=== PATIENT | female | born 1960 ===

== ENCOUNTER 2017-07-13 14:57 | Inpatient (IN) | payer MEDICARE, MEDICAID ==
--- NOTE | 2017-07-13 15:21 | ED PDOC ---
HPI: Altered Mental Status Time Seen by Provider: 07/13/17 15:08 Chief Complaint (Nursing): Altered Mental Status Chief Complaint (Provider): Altered Mental Status History Per: Patient History/Exam Limitations: None Onset/Duration Of Symptoms: Days (x2) Additional Complaint(s): Brandy Miller is a 56 year old female with previous medical history of schizoaffective disorder and hypertension, was brought to the emergency department by her family for an evaluation after patient tripped and fell yesterday sustaining injury to her chin, right shoulder and right hand. Denied dizziness or loss of consciousness. Patient was also reported missing by family yesterday from [facility] program and found wandering the streets around [place]. PMD: Edgar Nelson MD Past Medical History Reviewed: Historical Data, Nursing Documentation, Vital Signs Vital Signs: Last Vital Signs Temp 98.4 F 07/13/17 15:01 Pulse 99 H 07/13/17 15:01 Resp 16 07/13/17 15:01 BP 178/73 H 07/13/17 15:01 Pulse Ox 97 07/13/17 15:01 - Medical History PMH: Anxiety, Depression, HTN, Hypercholesterolemia, Schizophrenia ( schizoaffective) Denies: Diabetes, Hepatitis, HIV, Chronic Kidney Disease, Seizures, Sexually Transmitted Disease - Surgical History Surgical History: (x2) - Family History Family History: States: Unknown Family Hx - Home Medications Home Medications: Ambulatory Orders Medication Instructions Recorded Atorvastatin [Lipitor] 40 mg PO HS 10/15/16 Benztropine [Cogentin] 1 mg PO Q12H 10/15/16 Divalproex [Depakote ER] 1,000 mg PO HS 10/15/16 Haloperidol [Haldol] 2 mg PO HS 10/15/16 Lisinopril/Hydrochlorothiazide 1 tab PO DAILY 10/15/16 [Zestoretic 10-12.5 mg Tablet] Risperidone [Risperdal] 2 mg PO Q12H 10/15/16 Sertraline [Zoloft] 50 mg PO QAM 10/15/16 Sertraline [Zoloft] 100 mg PO QAM 10/15/16 buPROPion XL [Wellbutrin XL] 300 mg PO QAM 10/15/16 - Allergies Allergies/Adverse Reactions: Allergies Allergy/AdvReac Type Severity Reaction Status Date / Time No Known Allergies Allergy Verified 10/15/16 15:51 Review of Systems ROS Statement: Except As Marked, All Systems Reviewed And Found Negative ENT: Positive for: Other (chin pain) Musculoskeletal: Positive for: Shoulder Pain (right), Hand Pain (right) Neurological: Negative for: Dizziness, Other (loss of conciousness) Physical Exam - Reviewed Nursing Documentation Reviewed: Yes Vital Signs Reviewed: Yes - Physical Exam Appears: Positive for: Well, Non-toxic, No Acute Distress Head Exam: Negative for: ATRAUMATIC (or tenderness) Skin: Positive for: Normal Color (with submental ecchymosis) Eye Exam: Positive for: Normal appearance, EOMI, PERRL. Negative for: Nystagmus ENT: Positive for: Normal ENT Inspection Neck: Positive for: Normal, Painless ROM, Supple. Negative for: Decreased ROM ( or tenderness/deformity) Cardiovascular/Chest: Positive for: Regular Rate, Rhythm, Chest Non Tender. Negative for: Murmur Respiratory: Positive for: Normal Breath Sounds, Accessory Muscle Use. Negative for: Decreased Breath Sounds, Respiratory Distress Gastrointestinal/Abdominal: Positive for: Normal Exam. Negative for: Tenderness Extremity: Positive for: Tenderness (right shoulder), Other (rigth hand abrasion , cross MCP joints with full ROM). Negative for: Normal ROM (limited with pain) , Deformity Neurologic/Psych: Positive for: Alert (x3), manufacturing specialist II-XII (intact), Oriented ( responding to questions appropriately). Negative for: Motor/Sensory Deficits ( or focal deficits) - Laboratory Results Result Diagrams: 07/13/17 16:30 07/13/17 16:30 - ECG O2 Sat by Pulse Oximetry: 97 (RA) Pulse Ox Interpretation: Normal Medical Decision Making Medical Decision Making: Initial Impression: Fall-type injuries Initial Plan: * CT head without contrast * EKG * Alcohol serum * CMP * Drug screen, urine * Urine dipstick * CBC * CXR * Xray hand (right) * Xray shoulder (right) Medically stable for psychiatric admission Time: 1613 --CT head FINDINGS: HEMORRHAGE: No intracranial hemorrhage. BRAIN: There are mild chronic microangiopathic changes. There is no mass, mass effect or abnormal extra-axial fluid collection. There is no territorial infarction. VENTRICLES: There is mild age-related global parenchymal volume loss and proportionate enlargement of the ventricles and cortical sulci. CALVARIUM: The skull base and calvarium are normal. PARANASAL SINUSES: Predominantly clear. MASTOID AIR CELLS: Predominantly clear. OTHER FINDINGS: None. IMPRESSION: No acute intracranial abnormality. Scribe Attestation: Documented by Soraida Dodd, acting as a scribe for Efren Lucas MD. Provider Scribe Attestation: All medical record entries made by the Scribe were at my direction and personally dictated by me. I have reviewed the chart and agree that the record accurately reflects my personal performance of the history, physical exam, medical decision making, and the department course for this patient. I have also personally directed, reviewed, and agree with the discharge instructions and disposition. Disposition - Clinical Impression Clinical Impression: Schizoaffective disorder - Patient ED Disposition Is Patient to be Admitted: Yes - Disposition Disposition Time: 17:21 Condition: FAIR Forms: [employer] (Georgian) - Pt Status Changed To: Hospital Disposition Of: Inpatient - Admit Certification Admit to Inpatient:: After my assessment, the patient will require hospitalization for at least two midnights. This is because of the severity of symptoms shown, intensity of services needed, and/or the medical risk in this patient being treated as an outpatient. - POA Present On Arrival: None
--- NOTE | 2017-07-13 16:16 | CT ---
PROCEDURE: CT HEAD WITHOUT CONTRAST. HISTORY: r/o bleed COMPARISON: 10/15/2016. TECHNIQUE: Axial computed tomography images were obtained through the head/brain without intravenous contrast. Radiation dose: Total exam DLP = 860.99 mGy-cm. This CT exam was performed using one or more of the following dose reduction techniques: Automated exposure control, adjustment of the mA and/or kV according to patient size, and/or use of iterative reconstruction technique. FINDINGS: HEMORRHAGE: No intracranial hemorrhage. BRAIN: There are mild chronic microangiopathic changes. There is no mass, mass effect or abnormal extra-axial fluid collection. There is no territorial infarction. VENTRICLES: There is mild age-related global parenchymal volume loss and proportionate enlargement of the ventricles and cortical sulci. CALVARIUM: The skull base and calvarium are normal. PARANASAL SINUSES: Predominantly clear. MASTOID AIR CELLS: Predominantly clear. OTHER FINDINGS: None. IMPRESSION: No acute intracranial abnormality.
[2017-07-13 16:41] LABS: BASO # 0.1 K/uL (0.0-0.2); BASO % 0.7 % (0.0-2.0); EOS # 0.1 K/uL (0.0-0.7); HEMATOCRIT 37.7 % (34.0-47.0); LYMPH # 1.5 K/uL (1.0-4.3); LYMPH % 20.8 % (20.0-40.0); MEAN CORPUSCULAR HEMOGLOBIN 28.5 pg (27.0-31.0); MONO # 0.8 K/uL (0.0-0.8); MONO % 10.5 % (0.0-10.0); NEUT # 4.9 K/uL (1.8-7.0); NRBC % 0.1 % (0.0-0.0); RED CELL DISTRIBUTION WIDTH 14.2 % (11.5-14.5); WHITE BLOOD COUNT 7.4 K/uL (4.8-10.8)
[2017-07-13 16:47] LABS: ALB/GLOB RATIO 1.4 (1.0-2.1); ALCOHOL SERUM < 10 mg/dl (0-10); ALKALINE PHOSPHATASE 136 U/L (38-126); ALT/SGPT 27 U/L (9-52); AST/SGOT 40 U/L (14-36); BILIRUBIN,TOTAL 0.2 mg/dl (0.2-1.3); BLOOD UREA NITROGEN 14 mg/dl (7-17); CALCIUM 9.5 mg/dL (8.4-10.2); CARBON DIOXIDE 27 mmol/L (22-30); CHLORIDE 104 mmol/L (98-107); GFR AFRICAN-AMERICAN > 60; GLUCOSE,RANDOM 67 mg/dL (65-105); SODIUM 140 mmol/l (132-148); TOTAL PROTEIN 6.7 G/DL (6.3-8.2)
--- NOTE | 2017-07-13 17:05 | RAD ---
PROCEDURE: CHEST RADIOGRAPH, 1 VIEW HISTORY: cough COMPARISON: 07/13/2016 FINDINGS: LUNGS: Clear. PLEURA: No pneumothorax or pleural fluid seen. CARDIOVASCULAR: No radiographic findings to suggest acute or significant cardiovascular disease. OSSEOUS STRUCTURES: No significant abnormalities. VISUALIZED UPPER ABDOMEN: Normal. OTHER FINDINGS: None. IMPRESSION: No active disease. No acute/significant interval changes.
--- NOTE | 2017-07-13 17:05 | RAD ---
PROCEDURE: Radiographs of the Right Shoulder HISTORY: trauma COMPARISON: 10/15/2016 FINDINGS: BONES: No acute fractures. JOINTS: High riding humeral head relative to the glenoid consistent with rotator cuff disease. Acromioclavicular degenerative changes are stable. SOFT TISSUES: Normal. OTHER FINDINGS: None. IMPRESSION: No acute findings related to/accounting for the clinical presentation. No significant interval change compared to the prior examination(s).
--- NOTE | 2017-07-13 17:06 | RAD ---
PROCEDURE: Right Hand Radiographs. HISTORY: trauma COMPARISON: None. FINDINGS: BONES: No acute fractures. JOINTS: Osteoarthritic changes primarily distal interphalangeal joint distribution. SOFT TISSUES: Normal. OTHER FINDINGS: None. IMPRESSION: No acute findings related to/accounting for the clinical presentation.
[2017-07-13] MEDS ORDERED: DiphenhydrAMINE 50 mg/ml Inj IM PRN (20:00)
[2017-07-13] MEDS ORDERED: Alum-Mag Hydrox-Simethicone Susp (30 mL) PO PRN (20:00)
[2017-07-13] MEDS ORDERED: Magnesium Hydroxide Susp 30 ml UD PO PRN (20:00)
[2017-07-13] MEDS ORDERED: Bismuth Subsalicylate 262 mg/15 ml Sus (240 ml) PO PRN (20:04)
--- NOTE | 2017-07-13 20:26 | PCM.BM ---
<Aj Landa - Last Filed: 07/13/17 20:25> Treatment Plan Problems - Problems identified on initial assessmt Ineffective coping Date Initiated: 07/13/17 Time Initiated: 20:25 Assessment reference: NA Status: Active Treatment assets and liabiliti Patient Assests: cooperative, ADL independent, negotiates basic needs Patient Liabilities: live alone, medical problems, imparied memory - Milieu Protocol Maintain good personal hygiene: daily Encourage regular showers, daily Remind patient to perform daily oral care, daily Assist patient to perform ADL's Maintain personal safety: every shift Educate patient to report safety concerns to staff, every shift Monitor environment for contraband/sharps Medication safety: Monitor for expected outcome, potential side effects: every shift, Assess barriers to learning: every shift, Assess readiness for medication education: every shift <Matilda Wheeler - Last Filed: 07/21/17 11:22> Treatment assets and liabiliti Patient Assests: adapts well, cooperative, insightful, motivated, ADL independent, good support system, negotiates basic needs, good past tx response Patient Liabilities: live alone, medical problems, imparied memory Family Contact Family involvement: Family/SO is involved Family contact: Patient agrees to contact, Family has been contacted by patient , Telephone contact initiated by staff Family contact name: Geri(daughter) ([phone]) Family contacted how many times per week?: 2 Family contact comment: Senior Sales Manager placed call to patients daughter/primary support , Geri ([phone]) to discuss patients progress on 3NP and aftercare. Senior Sales Manager provided clinical updates regarding patients progress on 3N and medications. Patients daughter expressed concerns regarding patient returning to [facility] upon discharge secondary to distance from patients residence, stating "She lives in [place] and has to take the bus. It's a lot for her." Patients daughter inquired about partial programs closer to patients residence and possibility of adult medical day care. Senior Sales Manager explained that secondary to patients age, level of independence and psychiatric hx, partial hospital remain the recommended level of aftercare at this time. Senior Sales Manager encouraged patients daughter to explore adult medical daycare programs in the future. Possible referral to [facility] and home health aid services discussed. Patients daughter agreeable. Senior Sales Manager to discuss the above with patient. - Outside Agency Agency 1 Care involvment: Following patient during stay, Other Agency contact name: [facility] - Goals for Treatment Patient goals for treatment: Patient to continue stabilization on 3NP through medication management and group/supportive therapy. Patient to be encouraged to attend groups regularly to promote self-awareness,and improve insight, orientation, coping skills and self-esteem. Patient to be provided with referral for appropriate level of aftercare to reduce risk of future hospitalizations and ensure safety in the community. Discharge/Continuing Care - Education Needs Education Needs: Family Medication, Family Coping Skills, Family Community resources, Family Aftercare Safety Plan, Patient Medication, Patient Coping Skills, Patient Community resources, Patient Aftercare Safety Plan - Discharge Discharge Criteria: Tolerates medication w/o severe side effects, Ability to care for self, Reduction of target symptoms, Other Discharge to:: Home, Other - Treatment Team Participation Patient/Family/SO Statement: 07/21/17 11:21 Patient was discharged prior to attending treatment team. However, patient met with tx team thoroughly through-out stabilization. Patient was able to actively participate in discussions regarding progress on 3NP, discharge an aftercare. Patient calm, cooperative and pleasant on 3NP. No periods of confusion or disorientation noted on 3NP. Patient denies SI/HI or AH/VH upon discharge. Discussed with Family/SO: Yes Was Patient/Family/SO present at Treatment Team Meeting: Yes
[2017-07-13] MEDS: Divalproex 500 mg ER (ONCE DAILY formulation) PO SCH (21:28)
[2017-07-13 22:12] LABS: RBC URINE 13 /hpf (0-3); URINE BILIRUBIN NEGATIVE (NEGATIVE); URINE BLOOD SMALL (NEGATIVE); URINE COLOR YELLOW (YELLOW); URINE GLUCOSE (UA) NEG (Normal); URINE KETONE TRACE mg/dL (NEGATIVE); URINE LEUKOCYTE ESTERASE NEG Leu/uL (Negative); URINE PROTEIN NEGATIVE (NEGATIVE); URINE UROBILINOGEN 0.2-1.0 mg/dL (0.2-1.0); WBC URINE 2 /hpf (0-5)
--- NOTE | 2017-07-14 07:31 | CARD ---
APPROVED REPORT EKG Measurement Heart [id number] OK [id number] [id number] <Conclusion> Normal sinus rhythm Voltage criteria for left ventricular hypertrophy Abnormal ECG
[2017-07-14] MEDS ORDERED: Influenza Vaccine 18yr & older 0.5 ML/45 MCG SYR IM ONE (09:00)
[2017-07-14 09:07] LABS: T4 6.48 ug/dl (5.5-11.0)
[2017-07-14 09:20] LABS: THYROID STIMULATING HORMONE 2.71 mIU/ML (0.46-4.68)
--- NOTE | 2017-07-14 12:02 | CP.PCM.CON ---
History of Present Illness - History of Present Illness History of Present Illness: 56 YO Female with sig PMH of schizoaffective disorder, depression, HTN and HLD was brought to [facility] ED after a fall. Per pt, she was in a group meeting yesterday and then she was lost for hours. She could not find her way home, she experienced a fall and then called her daughter to take her home. Daughter brought pt to the ED. Pt states that she has been doing well otherwise, she takes her mediations on time. Pt endorses some chronic low back pain and knee pain. Not in any pain currently. Denies headaches, dizziness, weakness, chest pain, dyspnea, palpitations, n/v/d/p. In the ED, pt had CT head which was neg, Xray of the R shoulder neg, Xray R hand neg, chest xray no acute findings EKG normal sinus with a rate of 79, voltage criteria met for left ventricular hypertrophy. Review of Systems - Constitutional Constitutional: absent: Chills, Fever, Headache - EENT Eyes: absent: Change in Vision, Discharge, Pain - Cardiovascular Cardiovascular: absent: Chest Pain, Dyspnea, Palpitations - Respiratory Respiratory: absent: Cough, Wheezing - Gastrointestinal Gastrointestinal: absent: Abdominal Pain, Bloating, Change in Stool Character, Diarrhea, Vomiting - Genitourinary Genitourinary: absent: Change in Urinary Stream, Difficulty Urinating, Dysuria - Musculoskeletal Musculoskeletal: Back Pain (endorses chronic low back pain). absent: Abnormal Gait, Joint Swelling, Limited Range of Motion - Neurological Neurological: absent: Dizziness, Numbness, Headaches Past Patient History - Past Medical History & Family History Past Medical History?: Yes - Past Social History Smoking Status: Light Smoker < 10 Cigarettes Daily (Has 20+ yrs of smoking hx) Alcohol: None Drugs: Denies Home Situation {Lives}: With Family - CARDIAC Hx Hypercholesterolemia: Yes Hx Hypertension: Yes - PULMONARY Hx Tuberculosis: No - NEUROLOGICAL Hx Seizures: No - HEENT Hx HEENT Problems: No - RENAL Hx Chronic Kidney Disease: No - ENDOCRINE/METABOLIC Hx Endocrine Disorders: No - HEMATOLOGICAL/ONCOLOGICAL Hx Human Immunodeficiency Virus (HIV): No - INTEGUMENTARY Hx Dermatological Problems: No - MUSCULOSKELETAL/RHEUMATOLOGICAL Hx Musculoskeletal Disorders: No Hx Falls: Yes - GENITOURINARY/GYNECOLOGICAL Hx Sexually Transmitted Disorders: No - PSYCHIATRIC Hx Substance Use: No - SURGICAL HISTORY Hx Surgeries: Yes Hx Section: Yes Other/Comment: Lumpectomy. Eye surgery - ANESTHESIA Hx Anesthesia: Yes Meds Allergies/Adverse Reactions: Allergies Allergy/AdvReac Type Severity Reaction Status Date / Time No Known Allergies Allergy Verified 10/15/16 15:51 - Medications Medications: Current Medications Acetaminophen (Tylenol 325mg Tab) 650 mg PO Q4 PRN PRN Reason: PAIN LEVEL 4-7 Al Hydrox/Mg Hydrox/Simethicone (Maalox Plus 30 Ml) 30 ml PO Q4 PRN PRN Reason: Dyspepsia Atorvastatin Calcium (Lipitor) 40 mg PO HS [facility] Last Admin: 07/13/17 21:28 Dose: 40 mg Bismuth Subsalicylate (Pepto-Bismol) 524 mg PO Q4 PRN PRN Reason: Diarrhea Diphenhydramine HCl (Benadryl) 50 mg IM Q6 PRN PRN Reason: Extrapyramidal S/S Unable PO Diphenhydramine HCl (Benadryl) 50 mg PO Q6 PRN PRN Reason: Extrapyramidal Symptoms Diphenhydramine HCl (Benadryl) 50 mg PO HS PRN PRN Reason: Sleep Divalproex Sodium (Depakote Er(Once Daily)) 1,000 mg PO HS [facility] Last Admin: 07/13/17 21:28 Dose: 1,000 mg Famotidine (Pepcid) 20 mg PO DAILY [facility] Haloperidol (Haldol) 5 mg PO Q4 PRN PRN Reason: Agitation Haloperidol Lactate (Haldol) 5 mg IM Q4 PRN PRN Reason: Agitation, Unable to Take PO Home Med (Bupropion Xl [Wellbutrin Xl]) 300 mg PO QAM KIM Lorazepam (Ativan) 2 mg IM Q4 PRN PRN Reason: Anxiety/Agitation,Unable PO Lorazepam (Ativan) 2 mg PO Q4 PRN PRN Reason: Anxiety/Agitation Losartan Potassium (Cozaar) 50 mg PO DAILY KIM Magnesium Hydroxide (Milk Of Magnesia) 30 ml PO HS PRN PRN Reason: Constipation Physical Exam - Constitutional Appears: Well, No Acute Distress, Older Than Stated Age - Head Exam Head Exam: ATRAUMATIC, NORMAL INSPECTION, NORMOCEPHALIC - Eye Exam Eye Exam: EOMI, Normal appearance, PERRL - ENT Exam ENT Exam: Mucous Membranes Moist, Normal Exam - Neck Exam Neck exam: Positive for: Full Rom, Normal Inspection. Negative for: Lymphadenopathy - Respiratory Exam Respiratory Exam: Clear to Auscultation Bilateral, NORMAL BREATHING PATTERN. absent: Chest Wall Tenderness, Wheezes - Cardiovascular Exam Cardiovascular Exam: REGULAR RHYTHM, +S1, +S2 - GI/Abdominal Exam GI & Abdominal Exam: Normal Bowel Sounds, Soft. absent: Tenderness - Extremities Exam Extremities exam: Positive for: full ROM, normal inspection. Negative for: calf tenderness, pedal edema - Back Exam Back exam: NORMAL INSPECTION. absent: CVA tenderness (L), CVA tenderness (R) - Neurological Exam Neurological exam: Alert, Normal Gait, Oriented x3 - Psychiatric Exam Psychiatric exam: Normal Affect, Normal Mood - Skin Skin Exam: Dry, Intact, Normal Color, Warm Results - Vital Signs Recent Vital Signs: Last Vital Signs Temp 97.9 F 07/14/17 09:00 Pulse 102 H 07/14/17 09:00 Resp 20 07/14/17 09:00 BP 137/79 07/14/17 09:00 Pulse Ox 97 07/13/17 17:21 - Labs Result Diagrams: 07/13/17 16:30 07/13/17 16:30 Labs: Laboratory Results - last 24 hr 07/13/17 07/13/17 07/13/17 16:30 16:30 18:30 WBC 7.4 D RBC 4.24 Hgb 12.1 Hct 37.7 MCV 89.0 MCH 28.5 MCHC 32.0 L RDW 14.2 Plt Count 143 MPV 9.0 Neut % (Auto) 66.0 Lymph % (Auto) 20.8 [place] % (Auto) 10.5 H Eos % (Auto) 2.0 Baso % (Auto) 0.7 Neut # 4.9 Lymph # 1.5 [place] # 0.8 Eos # 0.1 Baso # 0.1 Sodium 140 Potassium 4.0 Chloride 104 Carbon Dioxide 27 Anion Gap 14 BUN 14 Creatinine 1.0 Est GFR ( Amer) > 60 Est GFR (Non-Af Amer) 57 Random Glucose 67 Calcium 9.5 Total Bilirubin 0.2 AST 40 H ALT 27 Alkaline Phosphatase 136 H Total Protein 6.7 Albumin 3.9 Globulin 2.9 Albumin/Globulin Ratio 1.4 Triglycerides Cholesterol LDL Cholesterol Direct HDL Cholesterol Thyroxine (T4) TSH 3rd Generation Urine Color Urine Clarity Urine pH Ur Specific [place] Urine Protein Urine Glucose (UA) Urine Ketones Urine Blood Urine Nitrate Urine Bilirubin Urine Urobilinogen Ur Leukocyte Esterase Urine RBC (Auto) Urine Microscopic WBC Ur Squamous Epith Cells Hyaline Casts Urine Opiates Screen Urine Methadone Screen Ur Barbiturates Screen Valproic Acid 46.3 L Ur Phencyclidine Scrn Ur Amphetamines Screen U Benzodiazepines Scrn U Oth Cocaine Metabols U Cannabinoids Screen Alcohol, Quantitative < 10 07/13/17 07/13/17 07/14/17 21:34 21:34 07:50 WBC RBC Hgb Hct MCV MCH MCHC RDW Plt Count MPV Neut % (Auto) Lymph % (Auto) [place] % (Auto) Eos % (Auto) Baso % (Auto) Neut # Lymph # [place] # Eos # Baso # Sodium Potassium Chloride Carbon Dioxide Anion Gap BUN Creatinine Est GFR ( Amer) Est GFR (Non-Af Amer) Random Glucose Calcium Total Bilirubin AST ALT Alkaline Phosphatase Total Protein Albumin Globulin Albumin/Globulin Ratio Triglycerides 91 D Cholesterol 152 LDL Cholesterol Direct 79 HDL Cholesterol 59 Thyroxine (T4) 6.48 TSH 3rd Generation 2.71 Urine Color Yellow Urine Clarity Slighty-cloudy Urine pH 6.0 Ur Specific [place] 1.016 Urine Protein Negative Urine Glucose (UA) Neg Urine Ketones Trace Urine Blood Small Urine Nitrate Negative Urine Bilirubin Negative Urine Urobilinogen 0.2-1.0 Ur Leukocyte Esterase Neg Urine RBC (Auto) 13 H Urine Microscopic WBC 2 Ur Squamous Epith Cells 2 Hyaline Casts 6-10 H Urine Opiates Screen Positive H Urine Methadone Screen Negative Ur Barbiturates Screen Negative Valproic Acid Ur Phencyclidine Scrn Negative Ur Amphetamines Screen Negative U Benzodiazepines Scrn Negative U Oth Cocaine Metabols Negative U Cannabinoids Screen Negative Alcohol, Quantitative Assessment & Plan - Assessment and Plan (Free Text) Assessment: 56 YO Female with PMH of schizoaffective disorder, depression, anxiety, HTN, HLD is admitted for schizoaffective disorder. 1. Schizoaffective disorder/depression/anxiety -continue management per psych 2. HTN -elevated on admission likely due to agitation, and s/p fall -stable today per last measurement at 137/79 -will cont home med, losartan 50mg daily -will continue to monitor and readjust meds as needed 3. HLD -will cont home med, atorvastatin 40mg daily 4. Continue heart healthy diet 5. DVT prop -pt is ambulating Thank you for the consult.
--- NOTE | 2017-07-14 13:50 | PCM.PSYCH ---
Initial Psychiatric Evaluation - Initial Psychiatric Evaluation Type of Admission: Voluntary Chief Complaint (in patient's own words): I GOT LOST AND COULD NOT FIND HOME Patient's Reaction to Hospitalization: PATIENT REQUESTING MEDICATION STABILIZATION History of Present Illness and Precipitating Events: PATIENT WITH HISTORY SCHIZOAFFECTIVE D/O. REPORTEDLY THAT THE PT IS ATTENDING THE PARTIAL CARE PROGRAM AT [facility] AND IS TREATED BY PSYCHIATRIST, NIRALI DAVID. DAUGHTER REPORTED THAT OF LATE, THE PT HAS BEEN MISSING SOME OF HER PARTIAL CARE PROGRAMMING BY STATING SUCH THINGS , "I WOKE UP LATE AND I WAS TIRED." DAUGHTER REPORTED THAT IN TWO WEEKS THE PT HAS GOTTEN LOST COMING HOME FROM PROGRAMMING THREE TIMES. SHE REPORTED THAT IT WAS NOT BAD IT WAS YESTRDAY WHEREAS PROGRAM LET OUT AT 3PM AND THEY DID NOT FIND THE PT UNTIL 2AM WHEN THEY ELICITED THE HELP OF HPD WHOPINGED HER PHONE AND WERE ABLE TO ASCERTAIN THAT SHE WAS IN [place]. PER THE PT'S DAUGHTER THE PT HAS BECOME SOMEWHAT DISORIENTED OF LATE. PATIENT REPORTED FEELING CONFUSED AT TIMES AND NOT BEING COMPLIANT WITH MEDICATIONS OR FOLLOW UP DENIED COMMAND HALLUCINATIONS OR SUICIDAL OR HOMICIDAL IDEATIONS [ End ] Current Medications: Active Medications Generic Name Dose Route Start Last Admin Trade Name Freq PRN Reason Stop Dose Admin Acetaminophen 650 mg 07/13/17 20:00 Tylenol 325mg Tab PO Q4 PRN PAIN LEVEL 4-7 Al Hydrox/Mg Hydrox/Simethicone 30 ml 07/13/17 20:00 Maalox Plus 30 Ml PO Q4 PRN Dyspepsia Atorvastatin Calcium 40 mg 07/13/17 22:00 07/13/17 21:28 Lipitor PO 40 mg HS KIM Administration Bismuth Subsalicylate 524 mg 07/13/17 20:04 Pepto-Bismol PO Q4 PRN Diarrhea Diphenhydramine HCl 50 mg 07/13/17 20:00 Benadryl IM Q6 PRN Extrapyramidal S/S Unable PO Diphenhydramine HCl 50 mg 07/13/17 20:00 Benadryl PO Q6 PRN Extrapyramidal Symptoms Diphenhydramine HCl 50 mg 07/13/17 20:04 Benadryl PO HS PRN Sleep Divalproex Sodium 1,000 mg 07/13/17 22:00 07/13/17 21:28 Depakote Er(Once Daily) PO 1,000 mg HS KIM Administration Famotidine 20 mg 07/14/17 09:00 Pepcid PO DAILY KIM Haloperidol 5 mg 07/13/17 20:00 Haldol PO Q4 PRN Agitation Haloperidol Lactate 5 mg 07/13/17 20:00 Haldol IM Q4 PRN Agitation, Unable to Take PO Home Med 300 mg 07/14/17 09:00 Bupropion Xl [Wellbutrin Xl] PO QAM KIM Lorazepam 2 mg 07/13/17 20:00 Ativan IM Q4 PRN Anxiety/Agitation,Unable PO Lorazepam 2 mg 07/13/17 20:00 Ativan PO Q4 PRN Anxiety/Agitation Losartan Potassium 50 mg 07/14/17 09:00 Cozaar PO DAILY KIM Magnesium Hydroxide 30 ml 07/13/17 20:00 Milk Of Magnesia PO HS PRN Constipation Risperidone 2 mg 07/14/17 22:00 Risperdal M-Tab PO HS KIM Past Psychiatric History - Past Psychiatric History Explanation of prior treatment: PATIENT HAS MULTIPLE HOSPITALIZATIONS AT THIS FACILITY. PT'S LAST ADMISSION WAS IN 2014. PT ATTENDS THE APRTIAL HOSPITALIZATION AT [facility]. PT IS TREATED BY DR. DAVID AND IS PRESCRIBED: WELLBUTRIN XL 300MGS AM ZOLOFT 150MGS AM History of Abuse: DENIED History of ETOH/Drug Use: OCCASIONAL DENIED ANY RECENT USE History of Family Illness: NON REPORTED Pertinent Medical Hx (Current Medical&Sleep Prob, Allergies): Allergies Allergy/AdvReac Type Severity Reaction Status Date / Time No Known Allergies Allergy Verified 10/15/16 15:51 Atorvastatin [Lipitor] 40 mg PO HS 10/15/16 Benztropine [Cogentin] 1 mg PO Q12H 10/15/16 Divalproex [Depakote ER] 1,000 mg PO HS 10/15/16 Haloperidol [Haldol] 2 mg PO HS 10/15/16 Risperidone [Risperdal] 2 mg PO Q12H 10/15/16 Sertraline [Zoloft] 50 mg PO QAM 10/15/16 Sertraline [Zoloft] 100 mg PO QAM 10/15/16 buPROPion XL [Wellbutrin XL] 300 mg PO QAM 10/15/16 Losartan [Cozaar] 50 mg PO DAILY 07/13/17 Ranitidine HCl [Zantac] 150 mg PO DAILY 07/13/17 Mental Status Examination - Personal Presentation Personal Presentation: Looks older than stated age - Affect Affect: Constricted - Motor Activity Motor Activity: Calm - Reliability in Providing Information Reliability in Providing Information: Poor, due to alteration in thoughts - Speech Speech: Tangential - Mood Mood: Anxious, Neutral - Formal Thought Process Formal Thought Process: Circumstantial - Hallucinations/Delusions Additional comments: PATIENT DENIED ANY CURRENT PERCEPTUAL DISTURBANCES NON ELICITED - Obsessions/Compulsions Obsessions: No Compulsions: No - Cognitive Functions Orientation: Person, Place Sensorium: Alert Attention/Concentration: Easily distracted Abstract Thinking: [place] Judgement: Imparied, as evidence by: Poor judgement Memory: Recent intact, as evidence by: Ability to recall events of the day - Risk Risk: Diminished functioning - Strength & Assets Inventory Strength & Assets Inventory: Family support - Limitations Additional comments: POOR COMPLIANCE DSM 5 DX - DSM 5 DSM 5 Diagnosis: SCHIZOAFFECTIVE DISORDER BIPOLAR TYPE - Recommended/Plan of Treatment Treatment Recommendations and Plan of Treatment: START RISPERIDONE 2MG FOLLOW UP ON PSYCHOPHARMACOLOGICAL EFFECTS AND SIDE EFFECTS PROFILE PATIENT PROVIDED SUPPORTIVE PSYCHOTHERAPY
[2017-07-14] MEDS: Risperidone M TAB 2 MG PO SCH (21:34)
[2017-07-14] MEDS: Divalproex 500 mg ER (ONCE DAILY formulation) PO SCH (21:34)
--- NOTE | 2017-07-15 14:15 | PCM.PYCHPN ---
Psychiatric Progress Note - Psychiatric Progress Note Patient seen today, length of contact: PATIENT EVALUATED DISCUSSED WITH TEAM CHART REVIEWED Patient Chief Complaint: I AM DOING WELL I LIKE THE FOOD TODAY Problems Identified/Issues Discussed: PATIENT ON EVALUATION, CALMER, COOPERATIVE, REPORTED GOOD SLEEP AND APPETITE, COMPLIANT WITH MEDICATIONS, NOREPORTED SIDE EFFECTS, ATTENDING GROUPS. DENIED ANY CURRENT COMMAND HALLUCINATIONS, DENIED SUICIDAL THOUGHTS Medical Problems: HYPERTENSION HIGH CHOLESTEROL DSM 5 Symptoms Update: SCHIZOAFFECTIVE DISORDER BIPOLAR TYPE Medication Change: Yes (START NAMENDA 5MG ) Medical Record Reviewed: Yes Mental Status Examination - Cognitive Function Orientation: Person, Place Attention: WNL Concentration: Poor Association: WNL Fund of Knowledge: Poor - Mood Mood: Neutral - Affect Affect: Broad - Speech Speech: Soft - Formal Thought Process Formal Thought Process: Circumstantial Psychotic Thoughts and Behaviors: PATIENT DENIED ANY CURRENT PSYCHOTIC SYMPTOMS, NON ELICITED - Suicidal Ideation Suicidal Ideation: No - Homicidal Ideation Homicidal Ideation: No Goal/Treatment Plan - Goal/Treatment Plan Need for Continued Stay: Discharge may exacerbated symptoms Progress Toward Problem(s) and Goals/Treatment Plan: TREATMENT PLAN DISCUSSED WITH DAUGHTER DELMIS UPON PATIENT CONSENT CONTINUE ON RISPERIDONE 2MG AND DEPAKOTE 1000 MG , FOLLOW UP ON DEPAKOTE LEVEL START NAMENDA 5MG FOLLOW UP ON PSYCHOPHARMACOLOGICAL EFFECTS AND SIDE EFFECTS PROFILE PATIENT PROVIDED SUPPORTIVE PSYCHOTHERAPY
[2017-07-15] MEDS: Divalproex 500 mg ER (ONCE DAILY formulation) PO SCH (21:02)
[2017-07-15] MEDS: Risperidone M TAB 2 MG PO SCH (21:02)
--- NOTE | 2017-07-16 10:25 | PCM.PYCHPN ---
Psychiatric Progress Note - Psychiatric Progress Note Patient seen today, length of contact: Patient evaluated, case discussed w/ team , chart reviewed Patient Chief Complaint: "I'm okay" Problems Identified/Issues Discussed: Patient is calm, cooperative. She reports that her mood is improving and denies current AH. She has constricted affect, but is able to brighten at times. She is circumstantial at times. She denies adverse effects to medications. VPA 72.3 on 07/16/17. Diagnostic Results: VPA 72.3 on 07/16/17 Medication Change: No Medical Record Reviewed: Yes Consults ordered or reviewed: Medicine consult Mental Status Examination - Cognitive Function Orientation: Person, Place Attention: WNL Concentration: Poor Association: WNL Fund of Knowledge: Poor Decription of patient's judgement and insights: Fair I/J - Mood Mood: Neutral - Affect Affect: Constricted - Speech Speech: Soft - Formal Thought Process Formal Thought Process: Circumstantial Psychotic Thoughts and Behaviors: Denies current AH/VH - Suicidal Ideation Suicidal Ideation: No - Homicidal Ideation Homicidal Ideation: No Goal/Treatment Plan - Goal/Treatment Plan Need for Continued Stay: Discharge may exacerbated symptoms Progress Toward Problem(s) and Goals/Treatment Plan: Schizoaffective Disorder, bipolar type; patient needs continued hospitalization for treatment and safety. -Individual and group therapy -Continue Bupropion XL 300 mg PO Daily -Continue Depakote 1000 mg PO HS, VPA 72.3 on 07/16/17 -Continue Namenda 5 mg PO HS -Continue Risperdal 2 mg PO HS -Disposition planning Estimated Date of D/C: 07/19/17
[2017-07-16] MEDS: Divalproex 500 mg ER (ONCE DAILY formulation) PO SCH (21:01)
[2017-07-16] MEDS: Risperidone M TAB 2 MG PO SCH (21:02)
--- NOTE | 2017-07-17 08:27 | PCM.PYCHPN ---
Psychiatric Progress Note - Psychiatric Progress Note Patient seen today, length of contact: Patient evaluated, case discussed w/ team , chart reviewed Patient Chief Complaint: "I'm okay" Problems Identified/Issues Discussed: Patient is calm, cooperative. She reports that her mood is improving and denies current AH. Patient is improving clinically. She denies adverse effects to medications. VPA 72.3 on 07/16/17. Diagnostic Results: VPA 72.3 on 07/16/17 Medication Change: No Medical Record Reviewed: Yes Consults ordered or reviewed: Medicine consult Mental Status Examination - Cognitive Function Orientation: Person, Place, Situation, Time Attention: WNL Concentration: Poor Association: WNL Fund of Knowledge: Poor Decription of patient's judgement and insights: Fair I/J - Mood Mood: Neutral - Affect Affect: Constricted - Speech Speech: Soft - Formal Thought Process Formal Thought Process: No Impairment Psychotic Thoughts and Behaviors: Denies current AH/VH - Suicidal Ideation Suicidal Ideation: No - Homicidal Ideation Homicidal Ideation: No Goal/Treatment Plan - Goal/Treatment Plan Need for Continued Stay: Discharge may exacerbated symptoms Progress Toward Problem(s) and Goals/Treatment Plan: Schizoaffective Disorder, bipolar type; patient needs continued hospitalization for treatment and safety. -Individual and group therapy -Continue Bupropion XL 300 mg PO Daily -Continue Depakote 1000 mg PO HS, VPA 72.3 on 07/16/17 -Continue Namenda 5 mg PO HS -Continue Risperdal 2 mg PO HS -Disposition planning Estimated Date of D/C: 07/19/17
[2017-07-17] MEDS: buPROPion SR 150 MG TABLET PO SCH ×2 (10:02→17:35)
--- NOTE | 2017-07-17 10:21 | CP.PCM.PN ---
Subjective - Date & Time of Evaluation Date of Evaluation: 07/17/17 Time of Evaluation: 10:18 - Subjective Subjective: No acute overnight events. Pt states that she feels well this morning. Seen walking in the hallway. Denies chest pain, dyspnea, palpitations, abdominal pain , n/v/d/c and remains afebrile. of note, today pts BP was elevated at systolic 170's, no cardiac symptoms. Objective - Vital Signs/Intake and Output Vital Signs (last 24 hours): Temp Pulse Resp BP Pulse Ox 97.1 F L 95 H 20 170/93 H 97 07/16/17 16:44 07/17/17 09:45 07/16/17 16:44 07/17/17 09:45 07/13/17 17:21 - Medications Medications: Current Medications Acetaminophen (Tylenol 325mg Tab) 650 mg PO Q4 PRN PRN Reason: PAIN LEVEL 4-7 Al Hydrox/Mg Hydrox/Simethicone (Maalox Plus 30 Ml) 30 ml PO Q4 PRN PRN Reason: Dyspepsia Atorvastatin Calcium (Lipitor) 40 mg PO HS [facility] Last Admin: 07/16/17 21:02 Dose: 40 mg Bismuth Subsalicylate (Pepto-Bismol) 524 mg PO Q4 PRN PRN Reason: Diarrhea Bupropion HCl (Wellbutrin Sr 150 Mg) 150 mg PO BID [facility] Last Admin: 07/17/17 10:02 Dose: 150 mg Diphenhydramine HCl (Benadryl) 50 mg IM Q6 PRN PRN Reason: Extrapyramidal S/S Unable PO Diphenhydramine HCl (Benadryl) 50 mg PO Q6 PRN PRN Reason: Extrapyramidal Symptoms Diphenhydramine HCl (Benadryl) 50 mg PO HS PRN PRN Reason: Sleep Divalproex Sodium (Depakote Er(Once Daily)) 1,000 mg PO HS [facility] Last Admin: 07/16/17 21:01 Dose: 1,000 mg Famotidine (Pepcid) 20 mg PO DAILY [facility] Last Admin: 07/17/17 09:44 Dose: 20 mg Haloperidol (Haldol) 5 mg PO Q4 PRN PRN Reason: Agitation Haloperidol Lactate (Haldol) 5 mg IM Q4 PRN PRN Reason: Agitation, Unable to Take PO Lorazepam (Ativan) 2 mg IM Q4 PRN PRN Reason: Anxiety/Agitation,Unable PO Lorazepam (Ativan) 2 mg PO Q4 PRN PRN Reason: Anxiety/Agitation Losartan Potassium (Cozaar) 100 mg PO DAILY [facility] Magnesium Hydroxide (Milk Of Magnesia) 30 ml PO HS PRN PRN Reason: Constipation Memantine (Namenda) 5 mg PO HS [facility] Last Admin: 07/16/17 21:02 Dose: 5 mg Risperidone (Risperdal M-Tab) 2 mg PO HS [facility] Last Admin: 07/16/17 21:02 Dose: 2 mg - Labs Labs: 07/13/17 16:30 07/13/17 16:30 - Constitutional Appears: Well, Other (disheveled ) - Head Exam Head Exam: ATRAUMATIC, NORMAL INSPECTION, NORMOCEPHALIC - Eye Exam Eye Exam: EOMI, Normal appearance - ENT Exam ENT Exam: Mucous Membranes Moist - Neck Exam Neck Exam: Full ROM - Respiratory Exam Respiratory Exam: Clear to Ausculation Bilateral, NORMAL BREATHING PATTERN - Cardiovascular Exam Cardiovascular Exam: REGULAR RHYTHM, +S1, +S2 - GI/Abdominal Exam GI & Abdominal Exam: Soft, Normal Bowel Sounds. absent: Tenderness - Extremities Exam Extremities Exam: Full ROM, Normal Inspection. absent: Calf Tenderness, Pedal Edema - Back Exam Back Exam: NORMAL INSPECTION. absent: CVA tenderness (L), CVA tenderness (R) - Neurological Exam Neurological Exam: Alert, Awake, Normal Gait, Oriented x3 - Psychiatric Exam Psychiatric exam: Flat Affect - Skin Skin Exam: Dry, Intact, Normal Color, Warm Assessment and Plan - Assessment and Plan (Free Text) Assessment: 56 YO Female with PMH of schizoaffective disorder, depression, anxiety, HTN, HLD is admitted for schizoaffective disorder. 1. Schizoaffective disorder/depression/anxiety -continue management per psych 2. HTN -elevated on admission likely due to agitation, and s/p fall -bp elavated today with systolic in 170s -will increase losartan 50mg to 100mg daily -will continue to monitor and readjust meds as needed 3. HLD -will cont home med, atorvastatin 40mg daily 4. Continue heart healthy diet 5. DVT prop -pt is ambulating Thank you for the consult.
[2017-07-17] MEDS: Divalproex 500 mg ER (ONCE DAILY formulation) PO SCH (21:00)
[2017-07-17] MEDS: Risperidone M TAB 2 MG PO SCH (21:01)
[2017-07-18 00:06] VITALS: O2SAT 100
[2017-07-18] MEDS: buPROPion SR 150 MG TABLET PO SCH (09:24)
--- NOTE | 2017-07-18 15:14 | PCM.PYCHPN ---
Psychiatric Progress Note - Psychiatric Progress Note Patient seen today, length of contact: Patient evaluated, case discussed w/ team , chart reviewed Patient Chief Complaint: I AM DOING WELL Problems Identified/Issues Discussed: PATIENT ON EVALUATION, CALMER, COOPERATIVE, REPORTED GOOD SLEEP AND APPETITE, COMPLIANT WITH MEDICATIONS, NOREPORTED SIDE EFFECTS, ATTENDING GROUPS. DENIED ANY CURRENT COMMAND HALLUCINATIONS, DENIED SUICIDAL THOUGHTS Medical Problems: HYPERTENSION HIGH CHOLESTEROL DSM 5 Symptoms Update: schizoaffective disorder bipolar type neurocogntive disorder mild Medication Change: No Medical Record Reviewed: Yes Mental Status Examination - Cognitive Function Orientation: Person, Place, Situation, Time Attention: WNL Concentration: Poor Association: WNL Fund of Knowledge: Poor - Mood Mood: Neutral - Affect Affect: Constricted - Speech Speech: Soft - Formal Thought Process Formal Thought Process: No Impairment - Suicidal Ideation Suicidal Ideation: No - Homicidal Ideation Homicidal Ideation: No Goal/Treatment Plan - Goal/Treatment Plan Need for Continued Stay: Discharge may exacerbated symptoms Progress Toward Problem(s) and Goals/Treatment Plan: TREATMENT PLAN DISCUSSED WITH DAUGHTER DELMIS UPON PATIENT CONSENT CONTINUE ON RISPERIDONE 2MG AND DEPAKOTE 1000 MG , DEPAKOTE LEVEL 74 NAMENDA 5MG FOLLOW UP ON PSYCHOPHARMACOLOGICAL EFFECTS AND SIDE EFFECTS PROFILE PATIENT PROVIDED SUPPORTIVE PSYCHOTHERAPY Estimated Date of D/C: 07/19/17
[2017-07-18] MEDS: Divalproex 500 mg ER (ONCE DAILY formulation) PO SCH (21:28)
[2017-07-18] MEDS: Risperidone M TAB 2 MG PO SCH (21:29)
[2017-07-19 09:05] VITALS: RESP 20
--- NOTE | 2017-07-19 13:16 | PCM.PYCHPN ---
Psychiatric Progress Note - Psychiatric Progress Note Patient seen today, length of contact: Patient evaluated, case discussed w/ team , chart reviewed Patient Chief Complaint: I WILL FOLLOW UP IN THE DAY PROGRAM Problems Identified/Issues Discussed: PATIENT ON EVALUATION, CALMER, COOPERATIVE, REPORTED GOOD SLEEP AND APPETITE, COMPLIANT WITH MEDICATIONS, NOREPORTED SIDE EFFECTS, ATTENDING GROUPS. DENIED ANY CURRENT COMMAND HALLUCINATIONS, DENIED SUICIDAL THOUGHTS Medical Problems: HYPERTENSION HIGH CHOLESTEROL Medication Change: Yes (INCREASE NAMENDA TO 10MG ) Medical Record Reviewed: Yes Mental Status Examination - Cognitive Function Orientation: Person, Place, Situation, Time Attention: WNL Concentration: WNL Association: WNL Fund of Knowledge: Poor - Mood Mood: Neutral - Affect Affect: Constricted - Speech Speech: Soft - Formal Thought Process Formal Thought Process: No Impairment - Suicidal Ideation Suicidal Ideation: No - Homicidal Ideation Homicidal Ideation: No Goal/Treatment Plan - Goal/Treatment Plan Need for Continued Stay: Discharge may exacerbated symptoms Progress Toward Problem(s) and Goals/Treatment Plan: CONTINUE ON RISPERIDONE 2MG AND DEPAKOTE 1000 MG , DEPAKOTE LEVEL 74 INCREASE NAMENDA TO 10MG FOLLOW UP ON PSYCHOPHARMACOLOGICAL EFFECTS AND SIDE EFFECTS PROFILE PATIENT PROVIDED SUPPORTIVE PSYCHOTHERAPY Estimated Date of D/C: 07/19/17
[2017-07-19] MEDS: Divalproex 500 mg ER (ONCE DAILY formulation) PO SCH (21:06)
[2017-07-19] MEDS: Risperidone M TAB 2 MG PO SCH (21:06)
--- NOTE | 2017-07-20 08:54 | CP.PCM.PN ---
Subjective - Date & Time of Evaluation Date of Evaluation: 07/20/17 Time of Evaluation: 08:52 - Subjective Subjective: No acute overnight events. Pt seen eating breakfast. She states that she feels well, and likes the hospital. Denies chest pain, dyspnea, palpatations, headache , n/v/d/c and remains afebrile. BP is better controlled then previously. Objective - Vital Signs/Intake and Output Vital Signs (last 24 hours): Temp Pulse Resp BP Pulse Ox 97.5 F L 72 20 150/70 100 07/19/17 09:00 07/19/17 20:31 07/19/17 09:00 07/19/17 20:31 07/17/17 20:30 - Medications Medications: Current Medications Acetaminophen (Tylenol 325mg Tab) 650 mg PO Q4 PRN PRN Reason: PAIN LEVEL 4-7 Al Hydrox/Mg Hydrox/Simethicone (Maalox Plus 30 Ml) 30 ml PO Q4 PRN PRN Reason: Dyspepsia Atorvastatin Calcium (Lipitor) 40 mg PO HS [facility] Last Admin: 07/19/17 21:06 Dose: 40 mg Bismuth Subsalicylate (Pepto-Bismol) 524 mg PO Q4 PRN PRN Reason: Diarrhea Diphenhydramine HCl (Benadryl) 50 mg IM Q6 PRN PRN Reason: Extrapyramidal S/S Unable PO Diphenhydramine HCl (Benadryl) 50 mg PO Q6 PRN PRN Reason: Extrapyramidal Symptoms Diphenhydramine HCl (Benadryl) 50 mg PO HS PRN PRN Reason: Sleep Divalproex Sodium (Depakote Er(Once Daily)) 1,000 mg PO HS [facility] Last Admin: 07/19/17 21:06 Dose: 1,000 mg Famotidine (Pepcid) 20 mg PO DAILY [facility] Last Admin: 07/19/17 09:24 Dose: 20 mg Haloperidol (Haldol) 5 mg PO Q4 PRN PRN Reason: Agitation Haloperidol Lactate (Haldol) 5 mg IM Q4 PRN PRN Reason: Agitation, Unable to Take PO Lorazepam (Ativan) 2 mg IM Q4 PRN PRN Reason: Anxiety/Agitation,Unable PO Lorazepam (Ativan) 2 mg PO Q4 PRN PRN Reason: Anxiety/Agitation Last Admin: 07/17/17 18:08 Dose: 2 mg Losartan Potassium (Cozaar) 100 mg PO DAILY [facility] Last Admin: 07/19/17 09:24 Dose: 100 mg Magnesium Hydroxide (Milk Of Magnesia) 30 ml PO HS PRN PRN Reason: Constipation Memantine (Namenda) 5 mg PO HS [facility] Last Admin: 07/19/17 21:06 Dose: 5 mg Risperidone (Risperdal M-Tab) 2 mg PO HS [facility] Last Admin: 07/19/17 21:06 Dose: 2 mg - Labs Labs: 07/13/17 16:30 07/13/17 16:30 - Constitutional Appears: No Acute Distress, Other (disheveled) - Head Exam Head Exam: ATRAUMATIC, NORMAL INSPECTION - Eye Exam Eye Exam: EOMI, Normal appearance - ENT Exam ENT Exam: Mucous Membranes Moist - Neck Exam Neck Exam: Full ROM. absent: Lymphadenopathy - Respiratory Exam Respiratory Exam: Clear to Ausculation Bilateral, NORMAL BREATHING PATTERN. absent: Wheezes - Cardiovascular Exam Cardiovascular Exam: REGULAR RHYTHM, +S1, +S2 - GI/Abdominal Exam GI & Abdominal Exam: Soft, Normal Bowel Sounds. absent: Tenderness - Extremities Exam Extremities Exam: Full ROM, Normal Inspection. absent: Joint Swelling, Pedal Edema, Tenderness - Back Exam Back Exam: Full ROM. absent: CVA tenderness (L), CVA tenderness (R) - Neurological Exam Neurological Exam: Alert, Awake, Oriented x3 - Psychiatric Exam Psychiatric exam: Flat Affect - Skin Skin Exam: Dry, Intact, Normal Color, Warm Assessment and Plan - Assessment and Plan (Free Text) Assessment: 56 YO Female with PMH of schizoaffective disorder, depression, anxiety, HTN, HLD is admitted for schizoaffective disorder. 1. Schizoaffective disorder/depression/anxiety -continue management per psych 2. HTN -elevated on admission likely due to agitation, and s/p fall -bp better controlled after medication change, systolic 120s-150s. -continue losartan 100mg daily -will continue to monitor and readjust meds as needed 3. HLD -will cont home med, atorvastatin 40mg daily 4. Diet Continue heart healthy diet 5. DVT prop -pt is ambulating Thank you for the consult.
[2017-07-20 09:11] VITALS: BP 127/80; PULSE 102; TEMP 98.1
--- NOTE | 2017-07-20 13:52 | PCM.PYCHDC ---
Mental Status Examination - Mental Status Examination Orientation: Person, Place Memory: Intact Mood: Neutral Affect: Constricted Speech: Appropriate Attention: WNL Concentration: WNL Association: WNL Fund of Knowledge: WNL Formal Thought Process: No Impairment Description of patient's judgement and insight: fair insight and judgment Psychotic Thoughts and Behaviors: PATIENT DENIED ANY CURRENT PSYCHOTIC SYMPTOMS, NON ELICITED Suicidal Ideation: No Current Homicidal Ideation?: No Discharge Summary - Discharge Note Reason for Hospitalization: Patient is a 56 year old, female admitted to [facility] for stabilization secondary to recent periods of confusion and disorientation in the community. Patient was reported missing in the community prior to admission after wandering on her way home from [facility]. Patient reports I get on the same bus every day. I dont know how I got to where I go. As per collateral, patient has gotten lost 3 times in the past 2 weeks. Patient reports walking for hours, beginning to get tired and falling (bruises/scraped on face/hands). Patient reports auditory and visual hallucinations on days leading to admission. However, patient denies AH/VH in ED, as per chart. Patient denies SI/HI. Patient denies sleep disturbances or recent changes in appetite. Consultations:: List each consultation separately and include: 1. Reason for request. 2. Findings. 3. Follow-up Summary of Hospital Course include:: 1. Description of specific treatment plan utilized for patients during their course of treatmen. 2. Summarize the time- course for resolution of acute symptoms and/or regressed behaviors. 3. Describe issues identified and worked on during hospitalization. 4. Describe medication utilized. 5. Describe medical problems identified and treated. 6. Reassessment of suicide risk Summary of Hospital Course: patient on admission was started on risperidone and depakote, namenda was started for early dementia patient was attending groups and no reported side effects of medications treatment plan discussed with daughter upon patient consent supportive therapy provided and patient on discharge mental status was stable denied suicidal or homicidal ideations denied perceptual disturbances will follow up with day program - Diagnosis (1) Schizoaffective disorder Current Visit: Yes Status: Acute - Final Diagnosis (DSM 5) Condition upon Discharge: FAIR Disposition: HOME/ ROUTINE Follow-up Treatment Plan: follow up at day program Prescriptions/Medication Reconciliation: Divalproex [Depakote ER(ONCE DAILY)] 1,000 mg PO HS 30 Days #30 ter Memantine [Namenda] 5 mg PO HS 30 Days #30 tab Risperidone [Risperidone M-Tab] 2 mg PO BID 30 Days #60 odt - Antipsychotic Medications Pt discharged on 2 or more routine antipsychotic medications: No
== END 2017-07-20 14:45 | disposition home or self-care (01) | DRG 885 ==
LOC: H.ER 14:57 → H.ERHOLD 17:19 → H.PSYCH 19:52
PROVIDERS: ADMIT Psychiatry & Neurology Psychiatry; ATTEND Psychiatry & Neurology Psychiatry
PROC: GZHZZZZ Group Psychotherapy (ICD-10-PCS; principal; 2017-07-13)
PROC: GZ56ZZZ Individual Psychotherapy, Supportive (ICD-10-PCS; 2017-07-13)
DX: F25.9 Schizoaffective disorder, unspecified (principal); F03.90 Unspecified dementia, unspecified severity, without behavioral disturbance, psychotic disturbance, mood disturbance, and anxiety; G89.29 Other chronic pain; I10 Essential (primary) hypertension; E78.00 Pure hypercholesterolemia, unspecified; E78.5 Hyperlipidemia, unspecified; F17.210 Nicotine dependence, cigarettes, uncomplicated; Z91.83 Wandering in diseases classified elsewhere

== ENCOUNTER 2017-11-26 23:26 | Emergency (ER) | payer MEDICARE, MEDICAID ==
[2017-11-26 23:39] VITALS: TEMP 98.2
--- NOTE | 2017-11-27 00:10 | ED PDOC ---
HPI: Psych/Substance Abuse Time Seen by Provider: 11/26/17 23:40 Chief Complaint (Nursing): Anxiety History Per: Patient History/Exam Limitations: no limitations Onset/Duration Of Symptoms: Hrs Current Symptoms Are (Timing): Still Present Associated Symptoms: Anxiety Additional Complaint(s): Hx of schizophrenia, HTN, HLD p/w anxiety, states that her boyfriend recently gained access to her apartment and she has now changed the locks but today received a phone call from him that made her very nervous. States that she has been "shaky" for 2 weeks since the incident and today's phone call exacerbated it. Denies SI/HI. Denies CP/SOB/ANGULO Past Medical History Reviewed: Historical Data, Nursing Documentation, Vital Signs Vital Signs: Last Vital Signs Temp 98.2 F 11/26/17 23:33 Pulse 95 H 11/27/17 00:04 Resp 18 11/26/17 23:33 BP 164/111 H 11/27/17 00:04 Pulse Ox 97 11/26/17 23:33 - Medical History PMH: Anxiety, Depression, HTN, Hypercholesterolemia, Schizophrenia ( schizoaffective) Denies: Diabetes, Hepatitis, HIV, Chronic Kidney Disease, Seizures, Sexually Transmitted Disease - Surgical History Surgical History: (x2) - Family History Family History: States: Unknown Family Hx - Home Medications Home Medications: Ambulatory Orders Medication Instructions Recorded Atorvastatin [Lipitor] 40 mg PO HS 11/26/17 Bupropion HCl [Bupropion HCl Xl] 300 mg PO DAILY 11/26/17 Divalproex Sodium [Divalproex 1 tab PO HS 11/26/17 Sodium ER] Haloperidol [Haldol] 5 mg PO HS 11/26/17 Losartan [Cozaar] 50 mg PO DAILY 11/26/17 Memantine [Namenda] 1 tab PO HS 11/26/17 Risperidone [Risperdal] 2 mg PO BID 11/26/17 - Allergies Allergies/Adverse Reactions: Allergies Allergy/AdvReac Type Severity Reaction Status Date / Time No Known Allergies Allergy Verified 10/15/16 15:51 Review of Systems ROS Statement: Except As Marked, All Systems Reviewed And Found Negative Psych: Positive for: Anxiety Physical Exam - Reviewed Nursing Documentation Reviewed: Yes Vital Signs Reviewed: Yes - Physical Exam Appears: Positive for: Well, Non-toxic, No Acute Distress Head Exam: Positive for: ATRAUMATIC, NORMAL INSPECTION, NORMOCEPHALIC Skin: Positive for: Normal Color, Warm, DRY Eye Exam: Positive for: EOMI, Normal appearance, PERRL ENT: Positive for: Normal ENT Inspection Neck: Positive for: Normal, Painless ROM Cardiovascular/Chest: Positive for: Regular Rate, Rhythm Respiratory: Positive for: CNT, Normal Breath Sounds Gastrointestinal/Abdominal: Positive for: Normal Exam, Bowel Sounds, Soft Back: Positive for: Normal Inspection Extremity: Positive for: Normal ROM Neurologic/Psych: Positive for: Alert, production department supervisor II-XII, Oriented, Other (Anxious Appearing) - ECG O2 Sat by Pulse Oximetry: 97 Pulse Ox Interpretation: Normal Medical Decision Making Medical Decision Making: A/P: Hx of schizophrenia, htn, hld p/w anxious thoughts -pt. hypertensive, likely 2/2 to anxiety and nervousness, will give norvasc and reassess -pt. consents to crisis eval 115AM Vitals significantly improved, Crisis cleared patient with dx: anxiety by Dr. Orourke. Will give one time dose of xanax to calm patient's nerves. Stable for discharge. Disposition - Clinical Impression Clinical Impression: Anxiety - Disposition Referrals: [facility] [Outside] Disposition: Routine/Home Disposition Time: 01:15 Condition: STABLE Instructions: Anxiety, Adult (DC) Forms: [employer] ([place]
[2017-11-27 01:22] VITALS: BP 149/94; PULSE 84; RESP 17
[2017-11-27 01:23] VITALS: O2SAT 97
== END 2017-11-27 01:30 | disposition home or self-care (01) ==
LOC: H.ER 23:26
DX: F41.9 Anxiety disorder, unspecified (principal); E78.00 Pure hypercholesterolemia, unspecified; F20.9 Schizophrenia, unspecified; F32.9 Major depressive disorder, single episode, unspecified; I10 Essential (primary) hypertension